=== PATIENT | female | born 1985 | race Hispanic/Latino ===

== ENCOUNTER 2022-12-22 15:49 | Emergency (ER) | payer BC ==
--- OUTSIDE RECORDS SUMMARY | 2022-12-22 15:53 | XMS REPORT | Continuity of Care Document ---
:1985 Author Organization [facility] t Address [address] [place] [address] Care Team Providers Name Role Phone Provider, Unknown Primary Care Physician Unavailable Problems This patient has no known problems. Allergies, Adverse Reactions, Alerts This patient has no known allergies or adverse reactions. Family History Family Member Diagnosis Comments Start Date Stop Date Source Maternal aunt Chiari malformation [facility] Maternal Migraines Religion grandmother [facility] Social History Social Habit Start Date Stop Date Quantity Comments Source Gender identity [facility] Sexual orientation Method ist [facility] History of Social 2019-03-20 2019-03-[address] function 00:00:00 00:00:00 Hospital Tobacco use and 2019-02-13 2019-02-13 Smokeless Religion exposure 00:00:00 00:00:00 tobacco non-user [facility] Alcohol intake 2019-02-13 2019-02-13 Lifetime Religion 00:00:00 00:00:00 non-drinker Hospital (finding) Sex Ass[birth year] At [birth year] Religion 00:00:00 00:00:00 Hospital Smoking Status Start Date Stop Date Source Never smoked tobacco Religion H ospital Medications Ordered Filled Start Stop Current Ordering Indication Dosage Frequency Signature Comments Components Source Medication Medication Date Date Medication? Clinician (SIG) Name Name acetaminoph Yes Take by Met sierra garcia (TYLENOL 7-[address] [facility]AL) 13:52: [facility]osp[facility] l Procedures This patient has no known procedures. Plan of Care Planned Activity Planned Date Details Comments Source Future Scheduled 2022-10-29 COVID-[address] [facility] Test 08:21:06 (#1) [code = COVID-19 VACCINE (#1)] Future Scheduled 2022-10-29 Screening for Religion Hospital Test 08:21:06 malignant neoplasm of cervix (procedure) [code = 284952523] Future Scheduled 2022-10-29 INFLUENZA VACCINE [facility] Hospital Test 08:21:06 [code = INFLUENZA VACCINE] Encounters Start End Encounter Admission Attending Care Care Encounter Source Date/Time Date/Time Type Type Clinicians Facility Department ID 2022-08-31 2022-08-31 Outpatient [facility] [id number] Emanuel 11:13:28 11:13:28 0202 F Maury Results Test Description Test Time Test Comments Results Result Comments Source VITAMIN A 2022-09-05 13:56:29 Test Item Value Reference Range Interpretation Comme nts RETINOL (VITAMIN A) (test code 0.39 mg/L 0.30-1.20 = 39250) RETINYL PALMITATE (test code = 0.04 mg/L 0.00-0.10 97315) INTERPRETATION (test code = Normal This test was developed and its 50704) performance marixa racteristics determined by [facility]. It has not been cleared or approved by the US Food and Drug Administration. This test was performed in a CLIA certified laboratory and is intended for clinical purpos es. TESTING PERFORMED AT [facility] [address], [place] [address] CAP NO. [id number] CLIA NO. [id number] VITAMIN [id number] 13:56:29 Test Item Value Reference Range Interpretation Comments ALPHA-TOCOPHEROL 10.9 mg/L 5.5-18.0 This test w as developed and (VIT E) (test its performanc e code = 29598) characteristic s determined by [facility]. It has not been cl eared or approved by the US Food and Drug Administra tion. This test was perfor med in a CLIA certified laboratory and is intended for clinical purpos es. GAMMA-TOCOPHEROL 1.3 mg/L 0.0-6.0 TESTING PE RFORMED AT (VIT E) (test [facility] code = 01238) [facility] [address], [place] [address] [place]. [id number] CL [place] NO. [id number] COMPREHENSIVE METABOLIC [id number] 06:32:08 Test Item Value Reference Range Interpretation Comments GLUCOSE (test code = 91 MG/DL 70-99 2216) BUN (test code = 9 MG/DL 6-20 2207) CREATININE (test 0.54 MG/DL 0.60-1.30 L code = 2214) eGFR (2020 CKD-EPI) 123 >60 (test code = 79480) ML/MIN/1.73 CALC BUN/CREAT (test 17 RATIO 6-28 code = 2235) SODIUM (test code = 138 MEQ/L 015-383 0946) POTASSIUM (test code 4.1 MEQ/L 3.5-5.4 = 2227) CHLORIDE (test code 102 MEQ/L 95-107 = 2214) CARBON DIOXIDE (test 25 MEQ/L 19-31 code = 220) CALCIUM (test code = 9.3 MG/DL 8.5-10.5 2208) PROTEIN, TOTAL (test 7.9 G/DL 6.1-8.3 code = 2228) ALBUMIN (test code = 4.6 G/DL 3.5-5.2 2200) CALC GLOBULIN (test 3.3 G/DL 1.9-3.7 code = 2240) CALC A/G RATIO (test 1.4 RATIO 1.0-2.6 code = 223) BILIRUBIN, TOTAL 0.7 MG/DL See_Comment [Automated message] (test code = 2207) The syste m which generated this result transmit maria esther reference range : <=1.2. The refe rence range was not u sed to interpret th is result as normal/abnormal . ALKALINE PHOSPHATASE 73 U/L 40-114 (test code = 220) AST (test code = 21 U/L 9-40 2217) ALT (test code = 11 U/L 5-40 2218) TSH, THIRD [id number] 06:23:47 Test Item Value Reference Range Interpretation Comments TSH, THIRD GENERATION (test code 0.885 UIU/ML 0.400-4.100 = 2821) [id number] 06:23:47 Test Item Value Reference Range Interpretation Comments FERRITIN (test code = 11 NG/ML 13-[address] has important 2074) pathology staff changes effective 09/27. New patholo gy staff will provide uninterrupted, excellent patie nt care and clinical consultation. S ee URL: [email or web address]. UNLESS OTHERWISE INDIC ATED, ALL TESTING PER FORMED AT [facility] [employer] [place]. [address] [place], [place] CLIA: [id number], CAP: [id number] CBC W/AUTO DIFF WITH [id number] 03:43:06 Test Item Value Reference Range Interpretation Comments WBC (test code = 4.8 K/UL 3.5-11.0 1001) RBC (test code = 4.57 M/UL 3.80-5.40 1002) HEMOGLOBIN (test code 11.9 G/DL 11.5-15.5 = 1003) HEMATOCRIT (test code 37.0 % 34.0-45.0 = 1004) MCV (test code = 81.0 fL 80.0-99.0 1005) MCH (test code = 26.0 PG 25.0-33.0 1006) MCHC (test code = 32.2 G/DL 31.0-36.0 1007) RDW (test code = 13.3 % 11.5-15.0 1038) NEUTROPHILS (test 56.5 % code = 1008) LYMPHOCYTES (test 31.1 % code = 1010) MONOCYTES (test code 5.7 % = 1011) EOSINOPHILS (test 5.7 % code = 1012) BASOPHILS (test code 0.8 % = 1013) IMMATURE GRANULOCYTES 0.2 % (test code = 1036) NUCLEATED RBCS (test 0.0 /100 WBC'S See_Comment [Aut omated code = 1065) message] The sy stem which generated this result transmitted reference range : 0.0. The refere nce range was not u sed to interpret th is result as normal/abnormal . PLATELET COUNT (test 411 K/UL 130-400 H code = 1015) ABSOLUTE NEUTROPHILS 2.69 K/UL 1.50-7.50 (test code = 1066) ABSOLUTE LYMPHOCYTES 1.48 K/UL 1.00-4.00 (test code = 1067) ABSOLUTE MONOCYTES 0.27 K/UL 0.20-1.00 (test code = 1068) ABSOLUTE EOSINOPHILS 0.27 K/UL 0.00-0.50 (test code = 1040) ABSOLUTE BASOPHILS 0.04 K/UL 0.00-0.20 (test code = 1069) ABS IMMATURE 0.01 K/UL 0.00-0.10 GRANULOCYTES (test code = 1020) ABS NUCLEATED RBCS 0.00 K/UL 0.00-0.11 (test code = 02624)
[2022-12-22 16:41] LABS: Absolute Lymphocytes (CBC) 0.8 K/uL (0.7-4.9); Hematocrit 36.6 % (36.0-45.0); Lymphocytes % 8.3 % (15.3-44.8); MCV 78.2 fL (80-100); MPV 7.8 fL (7.6-11.3); RBC Red Blood Cell Count 4.68 M/uL (3.86-4.86)
[2022-12-22 16:52] LABS: Specific Gravity 1.026 (1.005-1.030)
[2022-12-22 16:53] LABS: ALT/SGPT 21 U/L (13-56); AST/SGOT 16 U/L (15-37); Albumin 3.5 g/dL (3.4-5.0); Alkaline Phosphatase 78 U/L (45-117); BUN Blood Urea Nitrogen 14 mg/dL (7-18); Bicarbonate 21 mEq/L (21-32); Bilirubin Total 0.3 mg/dL (0.2-1.0); Glomerular Filtration Rate 119 ml/min (=/>90); Glucose Level 140 mg/dL (74-106); Lipase 30 U/L (13-75); Potassium 3.6 mEq/L (3.5-5.1); Protein, Total 8.3 g/dL (6.4-8.2); Sodium Level 135 mEq/L (136-145)
--- NOTE | 2022-12-22 16:53 | RAD REPORT ---
EXAM DESCRIPTION: RAD - Chest Pa And Lat (2 Views) - 12/22/2022 4:45 pm CLINICAL HISTORY: CHEST PAIN COMPARISON: No comparisons TECHNIQUE: PA and lateral views of the chest were obtained. FINDINGS: The lungs are clear. Heart size is normal and central vasculature is within normal limits. No pleural effusion or pneumothorax seen. No acute bony finding noted. IMPRESSION: No acute cardiopulmonary process.
[2022-12-22 16:55] LABS: Troponin High Sensitivity < 3.0 pg/mL (<58.9)
[2022-12-22] MEDS ORDERED: KETOROLAC 30 MG/ML INJ ONE (17:05)
--- NOTE | 2022-12-22 17:06 | EDPHYS ---
[facility] Name: Susanna Crawford Age: 37 yrs Sex: Female : 1985 Arrival Date: 12/22/2022 Time: 15:49 Bed 15 Private MD: ED Physician Mario Alberto Bravo HPI: 12/22 16:45 This 37 yrs old Female presents to ER via Ambulatory with complaints of Chest bs3 Pain. 16:45 37-year-old female presents with a cough and upper back pain she notes that the cough bs3 was ongoing for approximately 1 week however then she developed the back pain after coughing a lot she denies any shortness of breath she was seen in urgent care yesterday prescribed steroids and advised to come here as they could not do anything else they noted that there was some concern for gallbladder she notes that the pain does not change with food she does not have upper abdominal pain nausea or vomiting she denies any chance she is she denies any recent travel immobilization a history of surgeries any leg swelling any exogenous estrogen use. 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 - Social history:: Smoking status: Patient denies any tobacco usage or history of. ROS: 16:45 Constitutional: Negative for fever, chills bs3 16:45 All other systems are negative. Exam: 16:45 Constitutional: This is a well developed, well nourished patient who is awake, alert, bs3 and in no acute distress. When I sat the patient up during her exam she complained of significant pain and appeared to be uncomfortable Head/Face: Normocephalic, atraumatic. Eyes: Pupils equal round and reactive to light, extra-ocular motions intact. Lids and lashes normal. ENT: mmm, no posterior phyarngeal erythema Neck: Trachea midline, no thyromegaly, no neck stiffness Chest/axilla: Normal chest wall appearance and motion. Nontender with no deformity. No lesions are appreciated. Cardiovascular: Regular rate and rhythm with a normal S1 and S2. symmetric pulses in upper extremities Respiratory: Lungs have equal breath sounds bilaterally, clear to auscultation, no respiratory distress Abdomen/GI: Soft, non-tender, no rebound or guarding, negative Powell sign negative right upper quadrant tenderness Back: She has tenderness over the posterior right lower ribs MS/ Extremity: Pulses equal, no cyanosis. Neurovascular intact. Full, normal range of motion. Neuro: Awake and alert, GCS 15, oriented to person, place, time, and situation. Cranial nerves II-XII grossly intact. Motor strength 5/5 in all extremities. Sensory grossly intact. Psych: Awake, alert, with orientation to person, place and time. Behavior, mood, and affect are within normal limits. Vital Signs: 16:01 BP 143 / 97; Pulse 86; Resp 16; Temp 97.3; Pulse Ox 97% ; Weight 68.04 kg; Height 5 ft. bp 5 in. ; 16:23 BP 119 / 81; Pulse 80; Resp 17; Pulse Ox 100% on R/A; Pain 8/10; mb9 17:13 BP 115 / 80; Pulse 74; Resp 16; Pulse Ox 98% on R/A; mb9 16:01 Body Mass Index 24.96 (68.04 kg, 165.1 cm) bp 16:23 Pain Scale: Adult mb9 MDM: 15:54 Patient medically screened. bs3 16:45 Data reviewed: vital signs, nurses notes. ED course: 37-year-old with atypical upper bs3 back pain will rule out acute coronary syndrome her EKG is normal sinus rhythm at [address] elevation or depression QTc 399 as interpreted by myself She is PE RC negative She has no right upper quadrant tenderness and her history is not consistent with biliary etiology but will send LFTs will rule out pneumonia we will treat pain. 17:02 ED course: pt with negative workup, labs normal, xr negative for pneumothorx or pna as bs3 inter by myself. . 17:06 ED course: I considered PE but her history and physical are not consistent with this bs3 and she is PE RC negative. 12/22 15:55 Order name: Test, Urine; Complete Time: 17:02 bs3 12/22 15:59 Order name: CBC with Diff; Complete Time: 16:48 bs3 12/22 15:59 Order name: Comprehensive Metabolic Panel; Complete Time: 17:02 bs3 12/22 15:59 Order name: Lipase; Complete Time: 17:02 bs3 12/22 15:59 Order name: Troponin High Sensitivity; Complete Time: 17:02 bs3 12/22 15:59 Order name: Chest Pa And Lat (2 Views) XRAY; Complete Time: 17:02 bs3 12/22 15:55 Order name: EKG - Nurse/Tech; Complete Time: 16:24 bs3 Administered Medications: 17:01 Drug: Ketorolac IVP 15 mg Route: IVP; Site: right antecubital; mb9 17:13 Follow up: Response: No adverse reaction mb9 Disposition Summary: 12/22/22 17:05 Discharge Ordered Location: Home bs3 Problem: new bs3 Symptoms: have improved bs3 Condition: Stable bs3 Diagnosis - Chest pain, unspecified bs3 Followup: bs3 - With: Private Physician - When: 2 - 3 days - Reason: Re-evaluation by your physician Discharge Instructions: - Discharge Summary Sheet bs3 - Nonspecific Chest Pain, Adult bs3 - Muscle Pain, Adult bs3 Forms: - Work release form jl7 - Medication Reconciliation Form bs3 - Thank You Letter bs3 - Antibiotic Education bs3 - Prescription Opioid Use bs3 Signatures: Dispatcher [employer] Alexander Woody, RN RN Mario Alberto Vidal MD MD bs3 Jessika Wiley RN RN mb9
--- NOTE | 2022-12-22 17:06 | ER ---
Nurse's Notes [facility] Name: Susanna Crawford Age: 37 yrs Sex: Female : 1985 Arrival Date: 12/22/2022 Time: 15:49 Bed 15 Private MD: Diagnosis: Chest pain, unspecified Presentation: 12/22 16:01 Chief complaint: Patient states: CHEST PAIN AFTER COUGHING AND LIFTING HEAVY OBJECTS. bp Coronavirus screen: At this time, the client does not indicate any symptoms associated with coronavirus-19. Ebola Screen: No symptoms or risks identified at this time. Initial Sepsis Screen: Does the patient meet any 2 criteria? No. Patient's initial sepsis screen is negative. Does the patient have a suspected source of infection? No. Patient's initial sepsis screen is negative. Risk Assessment: Do you want to hurt yourself or someone else? Patient reports no desire to harm self or others. Onset of symptoms was December 21, 2022. 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 - Social history:: Smoking status: Patient denies any tobacco usage or history of. Screenin:26 [facility] ED Fall Risk Assessment (Adult) History of falling in the last 3 months, mb9 including since admission No falls in past 3 months (0 pts) Confusion or Disorientation No (0 pts) Intoxicated or Sedated No (0 pts) Impaired Gait No (0 pts) Mobility Assist Device Used No (0 pt) Altered Elimination No (0 pt) Score/Fall Risk Level 0 - 2 = Low Risk Oriented to surroundings, Maintained a safe environment, Educated pt \T\ family on fall prevention, incl call for assistance when getting out of bed. Abuse screen: Denies threats or abuse. Nutritional screening: No deficits noted. Tuberculosis screening: No symptoms or risk factors identified. Assessment: 16:24 General: Appears in no apparent distress. Behavior is cooperative. Pain: Complains of mb9 pain in chest Pain does not radiate. Pain currently is 8 out of 10 on a pain scale. Quality of pain is described as throbbing, Pain began gradually. Neuro: Neff Agitation-Sedation Scale (RASS): 0 - Alert and Calm Level of Consciousness is awake, alert, obeys commands, Oriented to person, place, time, situation, Appropriate for age. Cardiovascular: Heart tones S1 S2 present Patient's skin is warm and dry. Rhythm is regular. Respiratory: Airway is patent Respiratory effort is even, unlabored, Respiratory pattern is regular, symmetrical, Breath sounds are clear bilaterally. GI: Abdomen is flat, non-distended, Bowel sounds present X 4 quads. Abd is soft and non tender X 4 quads. Reports nausea, vomiting. Derm: Skin is pink, warm \T\ dry. Musculoskeletal: Range of motion: intact in all extremities. 17:13 Reassessment: No changes from previously documented assessment. Patient and/or family mb9 updated on plan of care and expected duration. Pain level reassessed. Patient is alert, oriented x 3, equal unlabored respirations, skin warm/dry/pink. Vital Signs: 16:01 BP 143 / 97; Pulse 86; Resp 16; Temp 97.3; Pulse Ox 97% ; Weight 68.04 kg; Height 5 ft. bp 5 in. ; 16:23 BP 119 / 81; Pulse 80; Resp 17; Pulse Ox 100% on R/A; Pain 8/10; mb9 17:13 BP 115 / 80; Pulse 74; Resp 16; Pulse Ox 98% on R/A; mb9 16:01 Body Mass Index 24.96 (68.04 kg, 165.1 cm) bp 16:23 Pain Scale: Adult mb9 ED Course: 15:54 Patient arrived in ED. ts1 15:54 Mario Alberto Bravo MD is Attending Physician. bs3 16:02 Triage completed. bp 16:03 Arm band placed on. bp 16:04 Jessika Wiley RN is Primary Nurse. mb9 16:23 EKG done, by ED staff, reviewed by Mario Alberto Bravo MD. Inserted saline lock: 20 gauge in mb9 right antecubital area, using aseptic technique. 16:24 Troponin High Sensitivity Sent. mb9 16:24 Lipase Sent. mb9 16:24 Comprehensive Metabolic Panel Sent. mb9 16:24 CBC with Diff Sent. mb9 16:24 Test, Urine Sent. mb9 16:26 Placed in gown. Bed in low position. Call light in reach. Side rails up X 1. Client mb9 placed on continuous cardiac and pulse oximetry monitoring. NIBP monitoring applied. electrical wirer on. 16:26 No provider procedures requiring assistance completed. Patient maintains SpO2 mb9 saturation greater than 95% on room air. 16:46 Chest Pa And Lat (2 Views) XRAY In Process Unspecified. EDMS 17:13 IV discontinued, intact, bleeding controlled, No redness/swelling at site. Pressure mb9 dressing applied. Administered Medications: 17:01 Drug: Ketorolac IVP 15 mg Route: IVP; Site: right antecubital; mb9 17:13 Follow up: Response: No adverse reaction mb9 Medication: 16:26 VIS not applicable for this client. mb9 Outcome: 17:05 Discharge ordered by . bs3 17:12 Discharged to home ambulatory. mb9 17:12 Condition: stable 17:12 Discharge instructions given to patient, Instructed on discharge instructions, follow up and referral plans. Demonstrated understanding of instructions, follow-up care. 17:13 Patient left the ED. mb9 Signatures: Dispatcher [employer] EDMS Alexander Wooten, RN RN Mario Alberto Vidal MD MD bs3 Jessika Wiley RN RN mb9 Candy Man PAS PAS ts1
[2022-12-22 17:32] VITALS: TEMP 97.3
[2022-12-22 17:38] VITALS: BP 115/80; O2SAT 98
== END 2022-12-22 17:13 | disposition home or self-care (01) ==
LOC: ER 15:49
DX: R07.9 Chest pain, unspecified (principal)
CPT/HCPCS: 36415; 71046; 80053; 81025; 83690; 84484; 85025; 96374; 99285